=== PATIENT | female | born 1945 ===

== ENCOUNTER 2018-10-21 06:57 | Day surgery (SDC) | payer OTHER ==
[~2018-10-21 06:57] MED LIST: ASPIRIN81 MG; CLONOPIN 1MG; EVISTA60 MG; HYZAAR 50-12.51 EACH; OMEGA 3; VITAMINA D-3; ZOCOR20 MG; ZOLOFT25 MG
== END 2018-10-21 18:00 | disposition home or self-care (01) ==
LOC: CIR.AMB 06:57
DX: R93.89 Abnormal findings on diagnostic imaging of other specified body structures (principal)